=== PATIENT | female | born 1935 | race Caucasian/White ===

== ENCOUNTER 2019-02-24 07:30 | Inpatient (IN) | payer MEDICARE, OTHER ==
[~2019-02-24 07:30] MED LIST: Acetaminophen TAB* 325 MG PO ONE; Buffered Lidocaine 1% SYRIN* 1 ML/SYRINGE INTRADERM ONE; Dexamethasone IV* 4 MG/ML 1 ML (4 MG) IV SLOW PU ONE; Famotidine TAB* 20 MG PO ONE; Gabapentin CAP(*) 300 MG PO ONE; Lactated Ringers 1000 ML Bag* 1,000 ML IV SCH; Tranexamic Acid 1,000 MG in NS 0.9% 50 ML* (outpatient use) IV SCH; celeCOXIB CAP* 200 MG PO ONE
--- OUTSIDE RECORDS SUMMARY | 2019-02-24 09:19 | XMS REPORT | Continuity of Care Document ---
:1935 External Reference #:[id number] Author Name Jessica [facility] Care Team Providers Name Role Phone Kwame Wayne MD Primary Care Physician Unavailable Payers Date Identification Numbers Payment Provider Subscriber Policy Number: [id number] Medicare Claudia Henriquez PayID: [id number] [address] [place] [address] Policy Number: [id number] [employer] Claudia Henriquez Group Number: [id number] [address] PayID: [id number] [place] [address] Advance Directives Description No Information Available Problems Date Description Provider Status Onset: 02/08/2014 Essential hypertension Malia Davis M.D. Active Onset: 02/08/2014 Coronary arteriosclerosis Malia Davis M.D. Active Onset: 02/08/2014 Pure hypercholesterolemia Malia Davis M.D. Active Onset: 02/06/2019 Premature beats Malia Davis M.D. Active Onset: 02/11/2015 Hyperlipidemia Malia Davis M.D. Active Family History Date Family Member(s) Observation Comments General Hypertension General Cancer General Heart Disease Social History Type Date Description Comments Sex Unknown Marital Status Lives With Alone Occupation Retired ETOH Use Occasionally consumes wine Tobacco Use Start: Unknown End: Patient is a former quit smoking 30 Unknown smoker years ago Recreational Drug Use Denies Drug Use Smoking Status Reviewed: 02/19/19 Patient is a former quit smoking 30 smoker years ago Exercise Type/Frequency Does not exercise Allergies, Adverse Reactions, Alerts Date Description Reaction Status Severity Comments 03/12/2016 NKDA Active 02/04/2014 Lisinopril cough Inactive 02/04/2014 Zetia Inactive 02/04/2014 Statins constipation Inactive Medications Medication Date Status Form Strength Qnty SIG Indications Ordering Provider Losartan 06/27/ Active Tablets 50mg 90tabs 1 by mouth Malia Potassium 2017 every day Ryan, M.DQuan Atorvastatin 04/10/ Active Tablets 20mg 90tabs 1 tab by Malia Calcium 2012 mouth [place], every day M.D. Gemfibrozil 03/04/ Active Tablets 600mg 180tab 1 by mouth Malia 2012 s twice a [place], day M.D. Metoprolol 02/11/ Active Tablets ER 50mg 135tab 1 1/2 tabs Malia Succinate ER 2012 24HR s by mouth [place], daily M.D. Terazosin HCL / Active Capsules 5mg 90caps 1 tablet Unknown 0000 daily Aspirin / Active Tablets DR 81mg 1 po qd Unknown 0000 (takes once in awhile) Levothyroxine / Active Tablets 100mcg 30tabs 1 po qd Unknown Sodium 0000 Celebrex / Active Capsules 200mg take one Unknown 0000 capsule/ta blet daily by mouth as needed for pain, avoid ibuprofen and other nsaids Nitrostat / Active Tablets 0.3mg dissolve 1 Unknown 0000 Sub tablet under the tongue every 5 minutes up to 3 doses as needed replace every 12 months Procardia XL / Active Tablets ER 60mg 1 by mouth Unknown 0000 24HR every day Bactrim DS 02/13/ Hx Tablets 800-160mg 6tabs take 1 by Jossy 2019 - mouth Jed, 02/18/ twice a M.D. 2019 day for 3 days Losartan 06/27/ Hx Tablets 100mg 30tabs 1 by mouth Steven SQuan Potassium 2017 - every day Victor, 06/27/ DO FACC 2018 Diovan 02/04/ Hx Tablets 160mg 90tabs 1 tab by Malia 2012 - mouth [place], 06/27/ every day M.D. 2017 Lipitor 01/06/ Hx Tablets 20mg 90tabs 1 tab by Malia 2012 - mouth [place], 04/10/ every day M.D. 2012 Nifedical XL 12/01/ Hx Tablets ER 60mg 90tabs 1 by mouth Malia 2012 - 24HR every day Ryan 08/24/ MCornell 2018 Vitamin B12 / Hx Tablets 100mcg 1 by mouth Unknown 0000 - every day 2018 Medications Administered in Office Medication Date Status Form Strength Qnty SIG Indications Ordering Provider Inj, Administered Injection Steven S. Regadenoson, 019 Victor, DO 0.1 MG FACC Technetium TC Administered Injection Steven S. 99M 019 Victor, DO Tetrofosmin, FACC Per Unit Dose Up To 40 Millicuries Depomedrol Administered Injection Nick F 40MG Kwasi Call MD No Injection Administered Injection Nick F Edwina Call MD Depomedrol Administered Injection Nick F 40MG Edwina Call MD Inj, Administered Injection Steven S. Regadenoson, 018 Victor, DO 0.1 MG FACC Technetium TC Administered Injection Steven S. 99M 018 Victor, Tetrofosmin, FACC Per Unit Dose Up To 40 Millicuries Immunizations CPT Code Status Date Vaccine Lot # [id number] Given 09/29/2010 Influenza Virus 3Yrs & Over [id number] Vital Signs Date Vital Result Comment 02/19/2019 1:19pm Height 62 inches 5'2" Weight 148.50 lb w/o shoes Heart Rate 62 /min reg BP Systolic Sitting 130 mmHg Rue reg cuff BP Diastolic Sitting 65 mmHg Rue reg cuff Respiratory Rate 15 /min BMI (Body Mass Index) 27.2 kg/m2 Ejection Fraction 55-60% 02/16/19 echo 02/11/2019 10:50am Height 62 inches 5'2" Weight 148.00 lb pt stated just weighed at doctor BP Systolic 132 mmHg BP Diastolic 66 mmHg Respiratory Rate 20 /min Body Temperature 97.7 F Pain Level 5 BMI (Body Mass Index) 27.1 kg/m2 02/06/2019 1:00pm Height 62 inches 5'2" Weight 148.00 lb Heart Rate 60 /min BP Systolic Sitting 144 mmHg Rue reg cuff BP Diastolic Sitting 70 mmHg Rue reg cuff BP Systolic Standing 110 mmHg Rue reg cuff BP Diastolic Standing 60 mmHg Rue reg cuff Respiratory Rate 14 /min BMI (Body Mass Index) 27.1 kg/m2 12/22/2018 1:50pm Height 62 inches 5'2" Weight 149.00 lb Heart Rate 66 /min BP Systolic 122 mmHg BP Diastolic 66 mmHg Respiratory Rate 16 /min Body Temperature 96.2 F Pain Level 7 BMI (Body Mass Index) 27.2 kg/m2 10/27/2018 10:52am Height 62 inches 5'2" Weight 149.00 lb Heart Rate 70 /min BP Systolic 124 mmHg BP Diastolic 68 mmHg Respiratory Rate 20 /min Pain Level 5 BMI (Body Mass Index) 27.2 kg/m2 08/28/2018 2:54pm Height 62 inches 5'2" Weight 149.00 lb BP Systolic 130 mmHg BP Diastolic 70 mmHg Respiratory Rate 15 /min Pain Level 7 BMI (Body Mass Index) 27.2 kg/m2 08/25/2018 2:02pm Height 62 inches 5'2" Weight 149.00 lb BP Systolic 112 mmHg BP Diastolic 64 mmHg Respiratory Rate 20 /min Body Temperature 97.4 F Pain Level 8 BMI (Body Mass Index) 27.2 kg/m2 07/18/2018 8:18am Height 62 inches 5'2" Weight 149.00 lb w/shoes Heart Rate 64 /min BP Systolic Sitting 132 mmHg Lue reg cuff BP Diastolic Sitting 74 mmHg Lue reg cuff BP Systolic Standing 142 mmHg Lue reg cuff BP Diastolic Standing 68 mmHg Lue reg cuff BMI (Body Mass Index) 27.2 kg/m2 Ejection Fraction 67% Stress Test 05/07/18 04/24/2018 4:15pm Height 62 inches 5'2" Weight 150.00 lb with shoes Heart Rate 56 /min BP Systolic Sitting 154 mmHg LUe reg cuff BP Diastolic Sitting 80 mmHg LUe reg cuff BP Systolic Standing 160 mmHg Lue reg cuff BP Diastolic Standing 80 mmHg Lue reg cuff Respiratory Rate 16 /min BMI (Body Mass Index) 27.4 kg/m2 Ejection Fraction 64% date 12/18/11 ECHO 05/23/2017 3:34pm Height 62 inches 5'2" Weight 151.00 lb Heart Rate 64 /min BP Systolic 162 mmHg Rue reg cuff BP Diastolic 78 mmHg Rue reg cuff BP Systolic Sitting 164 mmHg Lue reg cuff BP Diastolic Sitting 78 mmHg Lue reg cuff BP Systolic Standing 156 mmHg Lue reg cuff BP Diastolic Standing 80 mmHg Lue reg cuff Respiratory Rate 14 /min BMI (Body Mass Index) 27.6 kg/m2 Ejection Fraction 64% 12/18/11 03/12/2016 1:19pm Height 62 inches 5'2" Weight 158.00 lb with shoes Heart Rate 78 /min BP Systolic Sitting 130 mmHg Ra reg cuff BP Diastolic Sitting 64 mmHg Ra reg cuff BP Systolic Standing 128 mmHg Ra reg cuff BP Diastolic Standing 68 mmHg Ra reg cuff Respiratory Rate 16 /min BMI (Body Mass Index) 28.9 kg/m2 Ejection Fraction 64% 12/18/11 03/07/2015 10:52am Height 62 inches 5'2" Weight 155.00 lb Heart Rate 64 /min BP Systolic Sitting 140 mmHg left arm, reg cuff BP Diastolic Sitting 88 mmHg left arm, reg cuff BP Systolic Standing 140 mmHg left arm, reg cuff BP Diastolic Standing 90 mmHg left arm, reg cuff BMI (Body Mass Index) 28.3 kg/m2 02/11/2015 1:53pm Height 62 inches 5'2" Weight 154.00 lb Heart Rate 56 /min BP Systolic Sitting 122 mmHg LA reg cuff BP Diastolic Sitting 62 mmHg LA reg cuff BP Systolic Standing 134 mmHg LA BP Diastolic Standing 74 mmHg LA Respiratory Rate 14 /min BMI (Body Mass Index) 28.2 kg/m2 02/08/2014 1:26pm Height 62 inches 5'2" Weight 160.00 lb without shoes Heart Rate 74 /min BP Systolic Sitting 144 mmHg LA reg cuff BP Diastolic Sitting 76 mmHg LA reg cuff BP Systolic Standing 140 mmHg LA reg cuf BP Diastolic Standing 80 mmHg LA reg cuf Respiratory Rate 17 /min BMI (Body Mass Index) 29.3 kg/m2 Results Test Date Facility Test Result H/L Range Note Urine Culture And 02/11/2019 [facility] Urine Culture SEE RESULT 1, [address] [place] [address] [phone] Type & Screen 02/11/2019 [facility] Patient Blood O Negative [address] [place] [address] [phone] Antibody Screen NEGATIVE Urinalysis Profile 02/11/2019 [facility] Urine Color Yellow [address] [place] [address] [phone] Urine Appearance Cloudy Urine Specific [place] 1.016 N 1.010-1.030 Urine pH 5.0 N 5-9 Urine Urobilinogen Negative Negative Urine Ketones Negative Negative Urine Protein Negative Negative Urine Leukocytes 3+ Abnormal Negative Urine Blood Negative Negative Urine Nitrite Positive Abnormal Negative Urine Bilirubin Negative Negative Urine Glucose Negative Negative Urine White Blood Cell 3+(>20/hpf) Abnormal Absent Urine Red Blood Cell Trace(0-2/hpf) Absent Urine Bacteria 3+ Abnormal Absent Urine Squamous Epithelial Cell Present Abnormal Absent Laboratory test 02/11/2019 [facility] Partial 35.6 seconds N 26.0-36.3 [address] [place] [address] PTT [phone] Inr/Protime 02/11/2019 [facility] Inr 0.95 N 0.77-1.[address] [place] [address] [phone] Comp Metabolic 02/11/2019 [facility] Sodium 139 mmol/L N 135- [address] [place] [address] [phone] Potassium 3.7 mmol/L N 3.5-5.0 Chloride 105 mmol/L N 101-111 Co2 Carbon Dioxide 25 mmol/L N 22-32 Anion Gap 9 mmol/L N 2-11 Glucose 98 mg/dL N 70-100 Blood Urea Nitrogen 32 mg/dL High 6-24 Creatinine 0.86 mg/dL N 0.51-0.95 BUN/Creatinine Ratio 37.2 High 8-20 Calcium 9.1 mg/dL N 8.6-10.3 Total Protein 6.7 g/dL N 6.4-8.9 Albumin 4.5 g/dL N 3.2-5.2 Globulin 2.2 g/dL N 2-4 Albumin/Globulin Ratio 2.0 N 1-3 Total Bilirubin 0.70 mg/dL N 0.2-1.0 Alkaline Phosphatase 77 U/L N 34-104 Alt 8 U/L N 7-52 Ast 14 U/L N 13-39 Egfr Non- 63.0 >60 Egfr 76.3 >60 4 CBC Auto Diff 02/11/2019 [facility] White Blood 7.5 10^3/uL N 3.5-10.[address] [place] [address] [phone] Red Blood Count 4.35 10^6/uL N 3.70-4.87 Hemoglobin 14.0 g/dL N 12.0-16.0 Hematocrit 41 % N 33-41 Mean Corpuscular Volume 94 fL N 80-97 Mean Corpuscular Hemoglobin 32 pg High 27-31 Mean Corpuscular HGB Conc 34 g/dL N 31-36 Red Cell Distribution Width 14 % N 10.5-15 Platelet Count 223 10^3/uL N 150-450 Mean Platelet Volume 8.6 fL N 7.4-10.4 Abs Neutrophils 5.7 10^3/uL N 1.5-7.7 Abs Lymphocytes 1.0 10^3/uL N 1.0-4.8 Abs Monocytes 0.5 10^3/uL N 0-0.8 Abs Eosinophils 0.2 10^3/uL N 0-0.6 Abs Basophils 0.1 10^3/uL N 0-0.2 Abs Nucleated RBC 0 10^3/uL Granulocyte % 75.8 % Lymphocyte % 13.9 % Monocyte % 6.6 % Eosinophil % 2.7 % Basophil % 1.0 % Nucleated Red Blood Cells % 0 Xray 01/18/2019 [employer] In House Inj/Aspir Major JT Or Bursa W/ US <pending> 1 AA 02/24 2 SEE RESULT BELOW Name: MARILUZCLAUDIA Mario : [address]: Deshaun Otero MD Acct: [id number] Unit: [id number] AGE: 83 Location: PAT Re02/11/19 SEX: F Status: REG REF SPEC: [id number] EMILEE: 02/11/19-[address] [facility] [address]: Deshaun Otero MD REQ: [id number] RECD: 02/11/19 STATUS: ARCHIE INMAN DR: Kwame Wayne MD _ SOURCE: URINE SPDESC: ORDERED: Urine Culture Procedure Result Reported Site Urine Culture Final 02/13/19- 0922 ML Organism 1 ESCHERICHIA COLI [place] Count >100,000 (Many) CFU/ML 1. ESCHERICHIA COLI M.I.C. RX --------- ------ Ampicillin 8 S Cefazolin <=4 S Cefepime <=1 S Ceftriaxone <=1 S Ciprofloxacin <=0.25 S Gentamicin <=1 S Levofloxacin <=0.12 S Meropenem <=0.25 S Nitrofurantoin <=16 S Tetracycline <=1 S Pipercillin/Tazobactam <=4 S Trimethoprim/Sulfamethoxazole <=20 S Amoxicillin/Clavulanic Acid 4 S Aztreonam <=1 S Contact the Microbiology Department for any additional antibiotic reporting. * [facility] - Main Lab . END OF REPORT DEPARTMENT OF PATHOLOGY, [address] [place] [address] Ashish Barr M.D. Director [facility] # [id number] 3 02/24 4 Because ethnic data is not always readily available, this report includes an eGFR for both -Americans and non- Americans. The National Kidney Disease Education Program (NKDEP) does not endorse the use of the MDRD equation for patients that are not between the ages of 18 and 70, are , have extremes of body size, muscle mass, or nutritional status, or are non- or non-. According to the National Kidney Foundation, irrespective of diagnosis, the stage of the disease is based on the level of kidney function: Stage Description GFR(mL/min/1.73 m(2)) 1 Kidney damage with normal or decreased GFR 90 2 Kidney damage with mild decrease in GFR 60-89 3 Moderate decrease in GFR 30-59 4 Severe decrease in GFR 15-29 5 Kidney failure <15 (or dialysis) Procedures Date Code Description Status 02/16/2019 47796 ECHO Transthoracic, Real-Time 2D With Doppler And Color Completed Flow 02/16/2019 98657 ECHO Transthoracic, Real-Time 2D With Doppler And Color Completed Flow 02/12/2019 50333 Stress Test Completed 02/12/2019 98711 Myocardial Perfusion Imaging Tomographic (Spect) Multiple Completed Studies 02/10/2019 71207 Holter Monitor Review (24 hr)dr review & interp only Completed 02/06/2019 58367 ECG Monitor/Recording W/Visual Superimposition Scanning Completed 02/06/2019 26714 EKG Tracing & Interpretation Completed 12/22/2018 57054 Inj/Aspir Major JT Or Bursa W/ US Completed 12/22/2018 63831 Inj/Aspir Major JT Or Bursa W/ US Completed 08/28/2018 38255 Inj/Aspir Major JT Or Bursa W/ US Completed 05/06/2018 71300 Stress Test Completed 05/06/2018 34007 Myocardial Perfusion Imaging Tomographic (Spect) Multiple Completed Studies 04/24/2018 05733 EKG Tracing & Interpretation Completed 05/23/2017 74394 EKG Tracing & Interpretation Completed 03/12/2016 23986 EKG Tracing & Interpretation Completed 02/11/2015 92752 EKG Tracing & Interpretation Completed 02/08/2014 35099 EKG Tracing & Interpretation Completed 02/11/2013 47929 EKG Tracing & Interpretation Completed Encounters Type Date Location Provider Dx Diagnosis Office Visit 02/06/2019 [facility] Malia Davis, Z01.810 Encounter for 1:10p Of Bryce M.D. preprocedural cardiovascular examination M16.11 Unilateral primary osteoarthritis, right hip I25.10 Athscl heart disease of [place] coronary artery w/o ang pctrs E78.5 Hyperlipidemia, unspecified I10 Essential (primary) hypertension I49.3 Ventricular premature depolarization I25.2 Old myocardial infarction R01.1 Cardiac murmur, unspecified Office Visit 12/22/2018 Orthopedic Deshaun Otero, M16.11 Unilateral primary 1:45p Services Of [facility] osteoarthritis, right C.M.A. hip Office Visit 10/27/2018 Holly Otero M16.11 Unilateral primary 11:00a Services Of M.D. osteoarthritis, right C.M.A. hip Office Visit 08/25/2018 Holly Otero, M16.11 Unilateral primary 1:30p Services Of M.DQuan osteoarthritis, right C.M.A. hip Office Visit 07/18/2018 Linda Andrews I25.10 Athscl heart disease 8:30a [facility] Of [facility] of [place] coronary [employer] artery w/o ang pctrs E78.5 Hyperlipidemia, unspecified I10 Essential (primary) hypertension Office Visit 04/24/2018 4:00p [facility] Malia Davis, I25.10 Athscl heart Of [employer] M.D. disease of [place] coronary artery w/o ang pctrs E78.5 Hyperlipidemia, unspecified I10 Essential (primary) hypertension Z91.81 History of falling R35.1 Nocturia I49.3 Ventricular premature depolarization Office Visit 05/23/2017 3:00p [facility] Malia Davis, I25.10 Athscl heart Of [employer] M.D. disease of [place] coronary artery w/o ang pctrs I10 Essential (primary) hypertension E78.5 Hyperlipidemia, unspecified Office Visit 03/12/2016 1:30p [facility] Malia Davis, I25.10 Athscl heart Of [facility] M.D. disease of [place] coronary artery w/o ang pctrs I10 Essential (primary) hypertension E78.5 Hyperlipidemia, unspecified I25.2 Old myocardial infarction Office Visit 03/07/2015 11:00a [facility] Andie Boo, 401.9 Hypertension Unspec Of [facility] [place] 780.4 Dizziness & Giddiness 272.4 Hyperlipidemia Other Unspec 414.01 Coronary Atherosclerosis [place] Office Visit 02/11/2015 [place] Malia Davis, 414.01 Coronary 1:45p Cardiology Of M.D. Atherosclerosis [employer] [place] 401.9 Hypertension Unspec 272.4 Hyperlipidemia Other Unspec 780.4 Dizziness & Giddiness Office Visit 02/08/2014 1:15p [facility] Malia Davis, 401.9 Hypertension Of [facility] M.D. Unspec 414.01 Coronary Atherosclerosis [place] 272.0 Hypercholesterolemia Pure Office Visit 03/04/2013 9:15a [place] Nurse Visit 401.9 Hypertension Unspec Cardiology Of [facility] Office Visit 02/11/2013 10:45a [place] Malia 414.01 Coronary Cardiology Of [place], Atherosclerosis [facility] M.D. [place] 401.9 Hypertension Unspec 272.0 Hypercholesterolemia Pure Plan of Treatment Future Appointment(s):02/24/2019 11:30 am - VIJAY Nguyen at [facility].03/18/2019 2:15 pm - Deshaun Otero M.D. at [facility].02/24/2019 11:30 am - Deshaun Otero M.D. at [facility].02/19/2019 - Leticia Adams, N.P.R01.1 Cardiac murmur, qybaqikivbmL37.10 Atherosclerotic heart disease of [place] coronary artery withComments:Echo shows inferior wall not moving so well likely from old heart attack.Follow up:07/2019 OV LBSRecommendations:Continue metoprolol. ok to come off ASA for surgery ok to hold procardia and losartan if needed for blood iebzqnbgF68.3 Ventricular premature [id number] Essential (primary) jafgkvxyypysE05.2 Old myocardial infarction
--- OUTSIDE RECORDS SUMMARY | 2019-02-24 09:19 | XMS REPORT | Continuity of Care Document ---
:1935 External Reference #:[id number] Author Name [place] Jessica Care Team Providers Name Role Phone Kwame Wayne MD Primary Care Physician Unavailable Payers Date Identification Numbers Payment Provider Subscriber Policy Number: [id number] Medicare Sayda Henriquez PayID: [id number] [address] [place] [address] Policy Number: [id number] [employer] Sayda Henriquez Group Number: [id number] [address] PayID: [id number] [place] [address] Advance Directives Description No Information Available Problems Date Description Provider Status Onset: 02/08/2014 Essential hypertension Malia Davis M.D. Active Onset: 02/08/2014 Coronary arteriosclerosis Mlaia Davis M.D. Active Onset: 02/08/2014 Pure hypercholesterolemia [...] Use Denies Drug Use Smoking Status Reviewed: 02/06/19 Patient is a former quit smoking 30 [...] by mouth Malia Potassium 2017 every day Sandhya Davis Atorvastatin 04/10/ Active Tablets 20mg 90tabs 1 tab by Malia Calcium 2012 mouth every [place], day M.D. Gemfibrozil 03/04/ Active Tablets 600mg 180tab 1 by mouth Malia 2012 s twice a day Sandhya Davis Metoprolol 02/11/ Active Tablets ER 50mg 135tab 1 1/2 tabs Malia Succinate ER 2012 24HR s by mouth Ryan, daily M.DQuan Terazosin HCL / Active Capsules 5mg 90caps 1 tablet Unknown 0000 daily Aspirin / Active Tablets DR 81mg 1 po qd Unknown 0000 Levothyroxine / Active Tablets 100mcg 30tabs 1 po qd Unknown Sodium 0000 Celebrex / Active Capsules 200mg take one Unknown 0000 capsule/tab let daily by mouth as needed for pain, avoid ibuprofen and other nsaids Nitrostat / Active Tablets 0.3mg dissolve 1 Unknown 0000 Sub tablet under the tongue every 5 minutes up to 3 doses as needed replace every 12 months Procardia XL / Active Tablets ER 60mg 1 by mouth Unknown 0000 24HR every day Losartan 06/27/ Hx Tablets 100mg 30tabs 1 by mouth Steven Mckinney 2017 - every day Victor, 06/27/ FAC 2018 Diovan 02/04/ Hx Tablets 160mg 90tabs 1 tab by Malia 2012 - mouth every Ryan, 06/27/ day M.D. 2017 Lipitor 01/06/ Hx Tablets 20mg 90tabs 1 tab by Malia 2012 - mouth every Ryan, 04/10/ day M.D. 2012 Nifedical XL 12/01/ Hx Tablets ER 60mg 90tabs 1 by mouth Malia 2012 - 24HR every day Ryan, 08/24/ M.D. 2017 Vitamin B12 / Hx Tablets 100mcg 1 by mouth Unknown 0000 - every day 2018 Medications Administered in Office Medication Date Status Form Strength Qnty SIG Indications Ordering Provider Depomedrol 01/28/2 Administered Injection Nick F 40MG 019 Oneyda, MD No Injection Administered Injection Nick F 018 MD Oneyda Depomedrol Administered Injection Nick F 40MG Edwina Call MD Inj, Administered Injection Steven S. Regadenoson, 018 Victor, DO 0.1 MG FACC Technetium TC Administered Injection Steven S. 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 Inj/Aspir Major JT Or Bursa W/ <pending> US Procedures Date Code Description Status 02/06/2019 64130 EKG Tracing & Interpretation Completed 12/22/2018 Inj/Aspir Major JT Or Bursa W/ US Completed 12/22/2018 Inj/Aspir Major JT Or Bursa W/ US Completed 08/28/2018 Inj/Aspir Major JT Or Bursa W/ US Completed 05/06/2018 79296 Stress Test Completed 05/06/2018 49632 Myocardial Perfusion Imaging Tomographic (Spect) Multiple Completed Studies 04/24/2018 11114 EKG Tracing & Interpretation Completed 05/23/2017 16731 EKG Tracing & Interpretation Completed 03/12/2016 80264 EKG Tracing & Interpretation Completed 02/11/2015 05855 EKG Tracing & Interpretation Completed 02/08/2014 64884 EKG Tracing & Interpretation Completed 02/11/2013 20117 EKG Tracing & Interpretation Completed Encounters Type Date Location Provider Dx Diagnosis Office Visit 12/22/2018 [facility] Deshaun Otero M.D. 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 osteoarthritis, right hip Office Visit 10/27/2018 Holly Otero M.D. M16.11 Unilateral primary 11:00a [facility] osteoarthritis, right hip Office Visit 08/25/2018 [facility] Deshaun Otero M.D. M16.11 Unilateral primary 1:30p Services [facility] osteoarthritis, right hip Office Visit 07/18/2018 [place] [facility] Leticia Adams, I25.10 Athscl heart 8:30a Of [facility] [facility]. disease of platinum coronary artery w/o ang pctrs E78.5 Hyperlipidemia, unspecified I10 Essential (primary) hypertension Office Visit 04/24/2018 4:00p [place] [facility] Malia Davis, I25.10 Athscl heart Of [place] M.D. disease of platinum coronary artery w/o ang pctrs E78.5 Hyperlipidemia, unspecified I10 Essential (primary) hypertension Z91.81 History of falling R35.1 Nocturia I49.3 Ventricular premature depolarization Office Visit 05/23/2017 3:00p [place] [facility] Maila Davis, I25.10 Athscl heart Of [facility] M.D. disease of platinum coronary artery w/o ang pctrs I10 Essential (primary) hypertension E78.5 Hyperlipidemia, unspecified Office Visit 03/12/2016 1:30p [place] [facility] Malia Davis, I25.10 Athscl heart Of [facility] M.D. disease of platinum coronary artery w/o ang pctrs I10 Essential (primary) hypertension E78.5 Hyperlipidemia, unspecified I25.2 Old myocardial infarction Office Visit 03/07/2015 11:00a [place] [facility] Andie Boo, 401.9 Hypertension Unspec Of [facility] [place] 780.4 Dizziness & Giddiness 272.4 Hyperlipidemia Other Unspec 414.01 Coronary Atherosclerosis [place] Office Visit 02/11/2015 [place] Malia Davis, 414.01 Coronary 1:45p Cardiology Of M.D. Atherosclerosis [facility] [place] 401.9 Hypertension Unspec 272.4 Hyperlipidemia Other Unspec 780.4 Dizziness & Giddiness Office Visit 02/08/2014 1:15p [place] [facility] Malia Davis, 401.9 Hypertension Of [facility] M.D. Unspec 414.01 Coronary Atherosclerosis [place] 272.0 Hypercholesterolemia Pure Office Visit 03/04/2013 9:15a [place] Nurse Visit 401.9 Hypertension Unspec Cardiology Of IC [facility] Office Visit 02/11/2013 10:45a [place] Malia 414.01 Coronary Cardiology Of [place], Atherosclerosis [facility] M.D. [place] 401.9 Hypertension Unspec 272.0 Hypercholesterolemia Pure Plan of Treatment Future Appointment(s):02/19/2019 1:30 pm - Leticia Adams N.P. at [facility]02/12/2019 10:15 am - Tori Vu M.D. at [facility]02/16/2019 11:00 am - Ica ECHO Schedule at [facility]02/09/2019 8:00 am - Nurse Visit IC at [facility]2018 7:30 am - Dirk Shanna, M.D. at [facility].02/11/2019 11: 00 am - Deshaun Otero M.D. at [facility].02/06/2019 - Malia Davis M.D.Z01.810 Encounter for preprocedural cardiovascular examinationComments:We will update your echo and stress test prior to making recommendations for your surgery.Follow up:OV MD or [employer] after testing (Sx February 24).M16.11 Unilateral primary osteoarthritis, right hipI25.10 Atherosclerotic heart disease of platinum coronary artery withNew Orders:Echocardiogram, Ordered: 02/06/19Stress Test, Pharmacologic Nuclear (Lexiscan), Ordered: 02/06/19E78.5 Hyperlipidemia, [id number] Essential (primary) migjypxtuharO99.3 Ventricular premature depolarizationNew Orders:Holter Monitor, Ordered: Echocardiogram, Ordered: 02/06/19I25.2 Old myocardial uijkstjybsB14.1 Cardiac murmur, unspecifiedNew Orders:Echocardiogram, Ordered: 02/06/19
--- OUTSIDE RECORDS SUMMARY | 2019-02-24 09:19 | XMS REPORT | Continuity of Care Document ---
:1935 External Reference #:[id number] Author Name RodríguezGabrielJudit Care Team Providers Name Role Phone Kwame Wayne MD Primary Care Physician Unavailable Payers Date Identification Numbers Payment Provider Subscriber Policy Number: [id number] Medicare Sayda Henriquez PayID: [id number] [address] [place] [address] Policy Number: [id number] [employer] Sayda Henriquez Group Number: [id number] [address] PayID: [id number] [place] [address] Advance Directives Description No Information Available Problems [...] Use Denies Drug Use Smoking Status Reviewed: 02/11/19 Patient is a former quit smoking 30 [...] by mouth Malia Potassium 2017 every day Ryan MCornell Atorvastatin 04/10/ Active Tablets 20mg 90tabs 1 tab by Malia Calcium 2012 mouth every Ryan, day M.DQuan Gemfibrozil 03/04/ Active Tablets 600mg 180tab 1 by mouth Malia 2012 s twice a day Sandhya Davis Metoprolol 02/11/ Active Tablets ER 50mg 135tab 1 1/2 tabs Malia Succinate ER 2012 24HR s by mouth [place], daily M.DQuan Terazosin HCL / Active Capsules [...] Tablets 100mg 30tabs 1 by mouth Steven Andrews Potassium 2017 - every day [place], 06/27/ [facility] 2018 Diovan 02/04/ Hx Tablets 160mg 90tabs 1 tab by Malia 2012 - mouth every Ryan, 06/27/ day M.D. 2017 Lipitor 01/06/ Hx Tablets 20mg 90tabs 1 tab by Malia 2012 - mouth every [place], 04/10/ day M.D. 2012 Nifedical XL 12/01/ Hx Tablets ER 60mg 90tabs 1 by mouth Malia 2012 - 24HR every day [place], 08/24/ M.D. 2017 Vitamin B12 / Hx Tablets 100mcg 1 by mouth Unknown 0000 - every day 2018 Medications Administered in Office Medication Date Status Form Strength Qnty SIG Indications Ordering Provider Depomedrol Administered Injection Nick F 40MG Kwasi [...] CPT Code Status Date Vaccine Lot # [id number] Given 09/29/2010 Influenza Virus 3Yrs & Over [id number] Vital Signs Date Vital Result Comment 02/11/2019 10:50am Height 62 inches 5'2" Weight [...] Test Result H/L Range Note Xray 01/18/2019 Telecommunications Officer In House Inj/Aspir Major JT Or Bursa W/ <pending> US Procedures Date Code Description Status 02/06/2019 53263 EKG Tracing & Interpretation Completed 12/22/201841092 Inj/Aspir Major JT Or Bursa W/ US Completed 12/22/201836125 Inj/Aspir Major JT Or Bursa W/ US Completed 08/28/201861085 Inj/Aspir Major JT Or Bursa W/ US Completed 05/06/2018 01310 Stress Test Completed 05/06/2018 02051 Myocardial Perfusion Imaging Tomographic (Spect) Multiple Completed Studies 04/24/2018 09507 EKG Tracing & Interpretation Completed 05/23/2017 63038 EKG Tracing & Interpretation Completed 03/12/2016 05797 EKG Tracing & Interpretation Completed 02/11/2015 39213 EKG Tracing & Interpretation Completed 02/08/2014 57120 EKG Tracing & Interpretation Completed 02/11/2013 10878 EKG Tracing & Interpretation Completed Encounters Type Date Location Provider Dx Diagnosis Office Visit 02/06/2019 [place] [facility] Malia Davis, Z01.810 Encounter for 1:10p Of [place] preprocedural cardiovascular examination M16.11 Unilateral primary osteoarthritis, right hip I25.10 Athscl heart disease of [place] coronary artery w/o ang pctrs E78.5 Hyperlipidemia, unspecified I10 Essential (primary) hypertension I49.3 Ventricular premature depolarization I25.2 Old myocardial infarction R01.1 Cardiac murmur, unspecified Office Visit 12/22/2018 [facility] Deshaun Otero, M16.11 Unilateral primary 1:45p Services Of M.D. osteoarthritis, right C.M.A. hip Office Visit 10/27/2018 [facility] Deshaun Otero, M16.11 Unilateral primary 11:00a Services Of M.D. osteoarthritis, right C.M.A. hip Office Visit 08/25/2018 [facility] Deshaun Otero, M16.11 Unilateral primary 1:30p Services Of [place]. osteoarthritis, right C.M.A. hip Office Visit 07/18/2018 [place] Leticia Andrews I25.10 Athscl heart disease 8:30a Cardiology Of [place] N.[place]. of [place] coronary Telecommunications Officer artery w/o ang pctrs E78.5 Hyperlipidemia, unspecified I10 Essential (primary) hypertension Office Visit 04/24/2018 4:00p [facility] Malia Davis I25.10 Athscl heart Of Telecommunications Officer M.D. disease of [place] coronary artery w/o ang pctrs E78.5 Hyperlipidemia, unspecified I10 Essential (primary) hypertension Z91.81 History of falling R35.1 Nocturia I49.3 Ventricular premature depolarization Office Visit 05/23/2017 3:00p [facility] [facility] Malia Davis I25.10 Athscl heart Of Telecommunications Officer M.D. disease of [place] coronary artery w/o ang pctrs I10 Essential (primary) hypertension E78.5 Hyperlipidemia, unspecified Office Visit 03/12/2016 1:30p [facility] Malia Davis I25.10 Athscl heart Of Telecommunications Officer M.D. disease of [place] coronary artery w/o ang pctrs I10 Essential (primary) hypertension E78.5 Hyperlipidemia, unspecified I25.2 Old myocardial infarction Office Visit 03/07/2015 11:00a [facility] Andie Boo, 401.9 Hypertension Unspec Of [facility] [place] 780.4 Dizziness & Giddiness 272.4 Hyperlipidemia Other Unspec 414.01 Coronary Atherosclerosis [place] Office Visit 02/11/2015 [place] Malia Davis, 414.01 Coronary 1:45p Cardiology Of M.D. Atherosclerosis Telecommunications Officer [place] 401.9 Hypertension Unspec 272.4 Hyperlipidemia Other Unspec 780.4 Dizziness & Giddiness Office Visit 02/08/2014 1:15p [facility] Malia Davis, 401.9 Hypertension Of [facility] M.D. Unspec 414.01 Coronary Atherosclerosis [place] 272.0 Hypercholesterolemia Pure Office Visit 03/04/2013 9:15a [place] Nurse Visit 401.9 Hypertension Unspec Cardiology Of IC [facility] Office Visit 02/11/2013 10:45a [place] Malia 414.01 Coronary Cardiology Of [place], [facility] Sandhya [place] 401.9 Hypertension Unspec 272.0 Hypercholesterolemia Pure Plan of Treatment Future Appointment(s):03/18/2019 2:15 pm - Deshaun Otero M.D. at [facility]02/19/2019 1:30 pm - Leticia Adams N.PQuan at [place] [facility]02/12/2019 10:15 am - Tori Vu M.D. at [facility] [facility]02/16/2019 11:00 am - Ica ECHO Schedule at [facility]02/24/2019 7:30 am - Deshaun Otero M.D. at [facility]. - Deshaun Otero M.D.M16.11 Unilateral primary osteoarthritis, right hipNew Xrays:Pelvis 1-2 VWS, Ordered: 02/11/19Follow up:Follow up: 3-4 weeks post operatively
[2019-02-24] MEDS ORDERED: Dexamethasone IV* 4 MG/ML 1 ML (4 MG) ONE (09:51)
[2019-02-24] MEDS ORDERED: celeCOXIB CAP* 100 MG ONE (09:51)
[2019-02-24] MEDS ORDERED: Gabapentin CAP(*) 300 MG ONE (09:51)
[2019-02-24] MEDS ORDERED: ceFAZolin 2 GM in NS PREMIX(*) 2 GM/100 ML BAG IVPB ONE (09:52)
[2019-02-24] MEDS ORDERED: Famotidine TAB* 20 MG ONE (09:52)
[2019-02-24] MEDS ORDERED: Acetaminophen TAB* 325 MG ONE (09:52)
[2019-02-24] MEDS ORDERED: fentaNYL* 50 MCG/ML 2 ML VIAL (100 MCG VIAL) ONE ×2 (12:10→16:33)
[2019-02-24] MEDS ORDERED: Rocuronium* 10 MG/ML VIAL ONE (12:11)
[2019-02-24] MEDS ORDERED: Etomidate* 2 MG/ML 10 ML VIAL ONE (12:34)
[2019-02-24] MEDS ORDERED: KETAMINE HCL* 50 MG/ML 10 ML VIAL ONE (12:34)
[2019-02-24] MEDS ORDERED: HYDROmorphone INJ1* 1 MG/ML SYRINGE ONE (12:35)
[2019-02-24] MEDS ORDERED: oxyCODONE TAB* 5 MG TAB PO PRN ×2 (13:33→14:28)
[2019-02-24] MEDS ORDERED: HYDROmorphone INJ1* 1 MG/ML SYRINGE IV PRN (13:33)
[2019-02-24] MEDS ORDERED: PROCHLORPERAZINE INJ 5 MG/ML 2 ML VIAL IV PRN (13:33)
[2019-02-24] MEDS ORDERED: fentaNYL* 50 MCG/ML 2 ML VIAL (100 MCG VIAL) IV PRN (13:33)
[2019-02-24] MEDS ORDERED: Ketorolac INJ* 30 MG/ML 1 ML VIAL IV PRN (13:33)
[2019-02-24] MEDS ORDERED: Naloxone* 0.4 MG/ML 1 ML VIAL IV PRN (13:33)
[2019-02-24] MEDS ORDERED: DiMENhydriNATE IV* 50 MG/ML VIAL IV PUSH PRN (13:33)
[2019-02-24] MEDS ORDERED: Acetaminophen IV 1GM/100ML * 1,000 MG/100 ML VIAL IVPB ONE (13:33)
[2019-02-24] MEDS ORDERED: EPHEDrine (Pressors)* 50 MG/ML VIAL ONE (14:07)
[2019-02-24] MEDS ORDERED: Ondansetron INJ* 2 MG/ML VIAL ONE (14:13)
[2019-02-24] MEDS ORDERED: Morphine INJ* 2 MG/ML 1 ML SYRINGE (TWO MG - NEW SYRINGE VERSION) IV PRN (14:28)
[2019-02-24] MEDS ORDERED: Cyclobenzaprine TAB* 10 MG PO PRN (14:28)
[2019-02-24] MEDS ORDERED: Ondansetron ODT TAB* 4 MG PO PRN (14:28)
[2019-02-24] MEDS ORDERED: Ondansetron INJ* 2 MG/ML VIAL IV PRN (14:28)
[2019-02-24] MEDS ORDERED: diPHENhydraMINE IV* 50 MG/ML 1 ml VIAL (BENADRYL) IV PRN (14:28)
[2019-02-24] MEDS ORDERED: diPHENhydraMINE PO* 25 MG PO PRN (14:28)
[2019-02-24] MEDS ORDERED: Magnesium Hydroxide LIQ* 30 ML UDC PO PRN (14:28)
[2019-02-24] MEDS ORDERED: Nitroglycerin TAB 0.4 MG* 0.4 MG TAB SL PRN (15:00)
[2019-02-24] MEDS ORDERED: Ketorolac INJ* 30 MG/ML 1 ML VIAL ONE (15:54)
[2019-02-24] MEDS ORDERED: Acetaminophen IV 1GM/100ML * 100 ML ONE (15:54)
[2019-02-24] MEDS: Acetaminophen TAB* 325 MG PO SCH ×2 (17:24→17:36)
[2019-02-24] MEDS: Lactated Ringers 1000 ML Bag* 1,000 ML IV SCH (17:33)
[2019-02-24] MEDS: traMADol TAB* 50 MG PO SCH (17:48)
[2019-02-24] MEDS ORDERED: Losartan TAB* 25 MG PO SCH (18:00)
--- NOTE | 2019-02-24 20:11 | CONS ---
CONSULTATION REPORT: DATE OF CONSULT: 02/24/19 SERVICE REQUESTING CONSULTATION: Orthopedic Surgery. REASON FOR CONSULT: Perioperative co-management. SOURCE OF INFORMATION: History obtained from interview with the patient and family as well as review of past medical records. HISTORY OF PRESENT ILLNESS: This is an 83-year-old female with past medical history of CAD, last intervention in 2004, generally in good health, limited by osteoarthritic pain in her right hip, now postop day 0 status post right total hip arthroplasty with Dr. Otero. The patient was reportedly uneventful. No complications. She was seen in the PACU with her family. She was awake, interactive, and had no complaints. Denied chest pain, shortness of breath, nausea, vomiting, lightheadedness. Her medications were reviewed in depth. PAST MEDICAL HISTORY: Includes hyperlipidemia; coronary artery disease, status post stenting to her mid RCA, 2004; essential hypertension; GERD; osteoarthritis; hypothyroidism; history of cholecystectomy; appendectomy. Last stress test 2017, low risk. HOME MEDICATIONS: Include: 1. Terazosin 5 mg. 2. Aspirin 81 mg daily. 3. Levothyroxine 100 mcg daily. 4. Celebrex 200 mg daily as needed. 5. Nitrostat 0.3 mg as needed. 6. Procardia XL 60 mg daily. 7. Atorvastatin 20 mg daily. 8. Losartan 50 mg daily. 9. Metoprolol succinate 75 mg daily. 10. Gemfibrozil 600 mg twice daily. ALLERGIES: No known drug allergies. FAMILY HISTORY: Significant for cancer and heart disease as well as hypertension. SOCIAL HISTORY: Retired, lives alone. Quit smoking 30 years prior. Minimal alcohol. REVIEW OF SYSTEMS: As per HPI. Otherwise, all others negative. PHYSICAL EXAM: Vitals: 162/73, heart rate 53, 100% on 2 L, respiratory rate is 12, T-max 98. An 83-year-old female, appears stated age, lying flat, interactive, in no apparent distress. Her oropharynx is clear. She has moist mucous membranes. Sclerae are anicteric. She has regular rate and rhythm. She has a soft 2/6 systolic ejection murmur loudest in the right upper sternal border. Her lungs are clear to auscultation. Abdomen is soft, nontender, and nondistended. Extremities were warm and well perfused. Cranial nerves II through XII were intact. LABORATORY DATA: Labs reviewed: No labs to review. ASSESSMENT AND PLAN: This is an 83-year-old female postop day 0 right total hip arthroplasty with Dr. Otero without complication. 1. Postop day 0 right total hip. Care per primary team. Recommend minimization of narcotics in the perioperative period as able. I do note she has orders written for Dilaudid, ketorolac, morphine, oxycodone, and tramadol; all high-risk medications. Recommend simplification of narcotic and pain regimen. 2. Coronary artery disease. Continue aspirin and atorvastatin. 3. Hypertension. Continue losartan as well as nifedipine to start tomorrow. 4. DVT prophylaxis: Per primary team. Currently nothing ordered. [id number]/CPS #: [id number] [facility]
[2019-02-24] MEDS: Docusate CAP* 100 MG PO SCH (20:54)
[2019-02-24] MEDS: Gemfibrozil TAB* 600 MG PO SCH (20:54)
[2019-02-24] MEDS: ceFAZolin 1 GM ADVAN(*) 1 GM in NS 0.9% 50 ML* 50 ML IVPB SCH (20:54)
--- NOTE | 2019-02-24 22:47 | OP ---
CC: Dr. Kwame Wayne, [facility] * DATE OF OPERATION: 02/24/19 - ROOM #350 DATE OF : 35 SURGICAL CARE: Right hip. SURGEON: Deshaun Otero MD. ASSISTANTS: sound assistant, VIJAY Nguyen and Rebecca Bowden, surgical physician assistant. ANESTHESIOLOGIST: Dr. Mitchell. ANESTHESIA: Spinal anesthetic was attempted and not successful, we feel due to arthritis and scoliosis, and then an endotracheal tube general anesthetic was done. PRE-OP DIAGNOSIS: Severe arthritis of the right hip. POST-OP DIAGNOSIS: Severe arthritis of the right hip. OPERATIVE PROCEDURE: Right total hip replacement. COMPLICATIONS: There were no complications. DRAINS: There were no drains. ESTIMATED BLOOD LOSS: Right hip, 200 mL. REPLACEMENT: Crystalloid fluids. OPERATIVE INDICATION: Severe arthritis of the right hip. It has been no longer responsive to nonoperative care. The patient has been at months of very limited ambulation, pain, and stiffness of the hip. Severe arthritis by x-ray. CONDITION: Stable, to recovery room. DESCRIPTION OF PROCEDURE: The patient was brought to the operating room. The spinal anesthetic was attempted mainly in the sitting position and after it was unsuccessful, she was returned to the supine position, a general anesthetic was administered with an endotracheal tube. A Aragon catheter was inserted. The patient was carefully placed in the left lateral position with the downside left leg padded so there was no pressure on the peroneal nerve at the fibular head and neck. The pelvis was secured over the ASIS in the sacrum. A folded blanket was placed under the left greater trochanter to elevate the pelvis and the groin was then sealed off. The right hip and right lower extremity were then given a preliminary chlorhexidine prep and a final ChloraPrep for the surgical care. After prepping, draping, and sealing off, we did our universal protocol time-out, confirming Sayda Martinez and the plan for a right total hip replacement. We all agreed and we proceeded. The right hip was then approached with a slightly curving posterolateral skin incision going from the greater trochanter distally for 1-1/2 inch and curving proximally and posteriorly towards the posterior iliac spine for 2- 1/2 to 3 inches. Careful hemostasis was checked and achieved throughout the case utilizing electrocautery. The skin incision was made and we went through the subcu down to the iliotibial band. The IT band was opened up over the trochanteric bursa and then opened over the gluteus maria eugenia, in line with the skin incision. A Charnley retractor was carefully inserted. The trochanteric bursa was swept anteriorly and posteriorly. The posterior border of the gluteus medius was identified as well as the piriformis and a blunt retractor was inserted there. The piriformis and conjoint tendon were released from their piriformis fossa insertions and each were marked with a separate #2 Surgidac suture and the underlying capsular flap was also marked with this stitch and served as a retractor throughout the case. Careful hemostasis was done with the posterior approach to the hip. The hip had clear synovial fluid. It was not abundant. There was posterior, superior, and inferior osteophytes. The hip had migrated medially with sclerotic bone. The femoral neck was carefully marked and then cut about a fingerbreadth proximal to the lesser trochanter and the retraction for the acetabulum with sharp Hohmann anteriorly and posteriorly and blunt Hohmann superiorly and inferiorly. The osteophytes were removed superiorly/posteriorly and posteriorly/inferiorly. Reaming was then done 43 through 48 and at 48 we had nice bleeding subchondral and cancellous bone, a 48 Continuum cup was impacted into position after careful irrigation and the position of the cup was 45 degrees of abduction, 20 degrees of anteversion, and a single screw was inserted. Another screw was drilled for and this was too short and not utilized. An elevated liner was placed posteriorly for a 32 head. On the femoral side, we used a canal finder. The box osteotome trochanteric reamer broaching was done, 4 through 9, and the 9 was too tight, so the 7.5 was accepted and a trial reduction was done with the reduced neck and the +0 had nice fit; minimal push pull, no tendency towards dislocation with IR/ER in extension, flexion of 90 degrees allowed IR, and internal rotation of 30 to 40 degrees prior to dislocation. The femoral canal was cleaned. The 7.5 reduced neck standard M/L taper stem was then impacted into position in 15 to 20 degrees of anteversion. The trunnion was cleaned and a +0, 32-mm head was applied. During closure, we reattached the piriformis and conjoint tendon through 2 drill holes to the posterior superior greater trochanter. The hemostasis was checked and achieved utilizing electrocautery. We irrigated several times during closure with saline and we swabbed the soft tissues with clean lap sponges to avoid leaving debris. After reattaching the 2 muscles and the iliotibial band was reapproximated with interrupted #1 Vicryl in pfssyk-ej-nzioa fashion, more proximally on the fascia we used 0 Vicryl, the deep and superficial subcu were closed with 0 Vicryl and then 2- 0 Vicryl and then vale on the skin. The skin was washed and dried and covered with Betadine-soaked release, followed by sterile gauze, ABD pad, and then paper tape. The patient was carefully returned to the supine position and then to the hospital bed and into the recovery room in stable and satisfactory condition, having tolerated the procedure very well. [id number]/CPS #: [id number] MTDD
[2019-02-25] MEDS: traMADol TAB* 50 MG PO SCH ×4 (00:45→18:11)
[2019-02-25] MEDS: Acetaminophen TAB* 325 MG PO SCH ×3 (00:45→16:31)
[2019-02-25] MEDS: Lactated Ringers 1000 ML Bag* 1,000 ML IV SCH (03:20)
[2019-02-25] MEDS: ceFAZolin 1 GM ADVAN(*) 1 GM in NS 0.9% 50 ML* 50 ML IVPB SCH ×2 (04:47→12:28)
[2019-02-25 05:40] LABS: Hematocrit 32 % (33-41); Hemoglobin 10.9 g/dL (12.0-16.0); Mean Platelet Volume 8.5 fL (7.4-10.4); Platelet Count 160 10^3/uL (150-450)
[2019-02-25 05:57] LABS: BUN/Creatinine Ratio 28.7 (8-20); Calcium 8.1 mg/dL (8.6-10.3); EGFR African American 75.2 (>60); EGFR Non-African American 62.2 (>60); Potassium 3.6 mmol/L (3.5-5.0)
[2019-02-25] MEDS: Levothyroxine TAB* 100 MCG TAB PO SCH (06:06)
[2019-02-25] MEDS ORDERED: Morphine INJ* 2 MG/ML 1 ML SYRINGE (TWO MG - NEW SYRINGE VERSION) IV PRN (08:05)
[2019-02-25] MEDS: Metoprolol Succinate XL TAB* 25 MG PO SCH (08:29)
[2019-02-25] MEDS: Gemfibrozil TAB* 600 MG PO SCH ×2 (08:29→20:41)
[2019-02-25] MEDS: Docusate CAP* 100 MG PO SCH ×2 (08:29→20:41)
[2019-02-25] MEDS: Atorvastatin* 20 MG TAB PO SCH (08:29)
[2019-02-25] MEDS: Terazosin CAP* 5 MG PO SCH (08:29)
[2019-02-25] MEDS: Aspirin TAB* 325 MG PO SCH (08:29)
[2019-02-25] MEDS: NIFEdipine ER TAB* 60 MG PO SCH (08:29)
[2019-02-25] MEDS ORDERED: Metoprolol Succinate XL TAB* 100 MG PO SCH (09:00)
--- NOTE | 2019-02-25 09:47 | PN ---
Progress Note - Progress Note Date of Service: 02/25/19 SOAP: Subjective: []Patient seen and examined at bedside. She feels well and desires DC today, her son in the room would feel more comfortable if she go to PMRU or at least to stay another day as she lives alone. Denies CP, SOB, dizziness, nausea. Last night patient had an episode of disorientation being unsure where she was which resolved without intervention once she was awake and oriented to surroundings. Objective: []General: Well appearing, NAD, a&ox3 RLE: RIght hip dressing CDI, thigh is soft, DF/PF intact, sensation intact to light touch distally, DP2+ Calves supple and nontender without erythema, edema or palpable cords Assessment: []POD 1 sp Right total hip replacement 02/24 Dr Otero Plan: []WBAT PT/OT posterior hip precautions PMRU referral in. At home patient would be alone, her daughter and neighbor would be available as needed though not staying in her home with her. Home is all one level Vital Signs Temp 98.5 F 02/25/19 07:26 Pulse 66 02/25/19 07:26 Resp 18 02/25/19 08:28 BP 138/53 02/25/19 07:26 Pulse Ox 96 02/25/19 07:26 Intake & Output 02/24/19 02/25/19 02/25/19 18:59 06:59 18:59 Intake Total 2300 2151 360 Output Total 400 1475 500 Balance 1900 676 -140 Weight 147 lb Intake: IV Fluids 2300 1011 ABX - CEFAZOLIN 50 LR 2200 961 NS 100ML, Cefazolin 2G 100 Oral 1140 360 Output: Urine 500 Aragon 400 1475 Other: Estimated Blood Loss 400 Comment Laboratory Last Values Hgb 10.9 g/dL (12.0-16.0) L 02/25/19 04:57 Hct 32 % (33-41) L 02/25/19 04:57 Plt Count 160 10^3/uL (150-450) 02/25/19 04:57 MPV 8.5 fL (7.4-10.4) 02/25/19 04:57 Sodium 139 mmol/L (135-145) 02/25/19 04:57 Potassium 3.6 mmol/L (3.5-5.0) 02/25/19 04:57 Chloride 107 mmol/L (101-111) 02/25/19 04:57 Carbon Dioxide 26 mmol/L (22-32) 02/25/19 04:57 Anion Gap 6 mmol/L (2-11) 02/25/19 04:57 BUN 25 mg/dL (6-24) H 02/25/19 04:57 Creatinine 0.87 mg/dL (0.51-0.95) 02/25/19 04:57 Est GFR ( Amer) 75.2 (>60) 02/25/19 04:57 Est GFR (Non-Af Amer) 62.2 (>60) 02/25/19 04:57 BUN/Creatinine Ratio 28.7 (8-20) H 02/25/19 04:57 Glucose 118 mg/dL (70-100) H 02/25/19 04:57 Calcium 8.1 mg/dL (8.6-10.3) L 02/25/19 04:57
--- NOTE | 2019-02-25 13:23 | PN ---
Progress Note - Progress Note Date of Service: 02/25/19 Note: POD #1. Patient has done well overnight, however, little sleep. No marked pain right hip region. Nursing report overnight is very good. Patient walked with a walker in her room last PM. Hct 32%. Intake and Output are 4800 and 1800 respectively. X-ray right hip after surgery satisfactory. Right foot pulse ins 2 plus. Patient awake, alert, cooperative, and not distressed. Patient seen at 0700 this AM. Impression: stable and acute blood loss anemia. Plans: Up with walker , drinking, and using incentive spirometer.
--- NOTE | 2019-02-25 15:24 | PN ---
Hospitalist Progress Note Date of Service: 02/25/19 Chart reviewed: Patient has been normotensive with SBP 100-130s. Recommend continuing metoprolol , nifedipine, and losartan at current dosing. No concerns related to CAD. Other home medications can be continued. Thank you for this consultation. We will continue to follow distantly.
[2019-02-25] MEDS ORDERED: Losartan TAB* 25 MG PO SCH (18:00)
[2019-02-26] MEDS: Acetaminophen TAB* 325 MG PO SCH ×3 (00:15→15:12)
[2019-02-26] MEDS: traMADol TAB* 50 MG PO SCH ×4 (00:18→15:12)
[2019-02-26] MEDS: Levothyroxine TAB* 100 MCG TAB PO SCH (05:13)
[2019-02-26 06:26] LABS: Hematocrit 29 % (33-41); Hemoglobin 9.9 g/dL (12.0-16.0); Mean Platelet Volume 8.3 fL (7.4-10.4); Platelet Count 157 10^3/uL (150-450)
[2019-02-26] MEDS: NIFEdipine ER TAB* 60 MG PO SCH (09:00)
[2019-02-26] MEDS: Aspirin TAB* 325 MG PO SCH (09:00)
[2019-02-26] MEDS: Metoprolol Succinate XL TAB* 25 MG PO SCH (09:00)
[2019-02-26] MEDS: Gemfibrozil TAB* 600 MG PO SCH (09:00)
[2019-02-26] MEDS: Docusate CAP* 100 MG PO SCH (09:00)
[2019-02-26] MEDS: Atorvastatin* 20 MG TAB PO SCH (09:00)
[2019-02-26] MEDS: Terazosin CAP* 5 MG PO SCH (09:00)
--- NOTE | 2019-02-26 11:13 | PN ---
Progress Note - Progress Note Date of Service: 02/26/19 SOAP: Subjective: []Patient seen at bedside. Her pain is well controlled and she desires DC, agreeable to home or to PMRU. Denies CP, SOB, dizziness, nausea Objective: [] General: Well appearing, NAD RLE: RIght hip dressing changed, incision is CDI, thigh is soft, DF/PF intact, sensation intact to light touch distally, DP2+ Calves supple and nontender without erythema, edema or palpable cords Assessment: []POD 2 sp Right total hip replacement 02/24 Dr Otero Plan: []WBAT PT/OT posterior hip precautions PMRU referral in awaiting review Vital Signs Temp 98.7 F 02/26/19 07:17 Pulse 64 02/26/19 08:58 Resp 18 02/26/19 08:40 BP 132/52 02/26/19 08:58 Pulse Ox 94 02/26/19 08:00 Intake & Output 02/25/19 02/26/19 02/26/19 18:59 06:59 18:59 Intake Total 1590 755 350 Output Total 750 900 450 Balance 840 -145 -100 Intake: IV Fluids 1000 ABX - CEFAZOLIN 110 LR 890 Oral 590 755 350 Output: Urine 750 900 450 Other: Estimated Void Medium # Bowel Movements 1 Estimated Stool Amount Large # Voids 1 Laboratory Last Values Hgb 9.9 g/dL (12.0-16.0) L 02/26/19 05:47 Hct 29 % (33-41) L 02/26/19 05:47 Plt Count 157 10^3/uL (150-450) 02/26/19 05:47 MPV 8.3 fL (7.4-10.4) 02/26/19 05:47 Sodium 139 mmol/L (135-145) 02/25/19 04:57 Potassium 3.6 mmol/L (3.5-5.0) 02/25/19 04:57 Chloride 107 mmol/L (101-111) 02/25/19 04:57 Carbon Dioxide 26 mmol/L (22-32) 02/25/19 04:57 Anion Gap 6 mmol/L (2-11) 02/25/19 04:57 BUN 25 mg/dL (6-24) H 02/25/19 04:57 Creatinine 0.87 mg/dL (0.51-0.95) 02/25/19 04:57 Est GFR ( Amer) 75.2 (>60) 02/25/19 04:57 Est GFR (Non-Af Amer) 62.2 (>60) 02/25/19 04:57 BUN/Creatinine Ratio 28.7 (8-20) H 02/25/19 04:57 Glucose 118 mg/dL (70-100) H 02/25/19 04:57 Calcium 8.1 mg/dL (8.6-10.3) L 02/25/19 04:57
[2019-02-26 12:31] LABS: Urine Appearance Clear; Urine Bacteria Absent (Absent); Urine Bilirubin Negative (Negative); Urine Blood 1+ (Negative); Urine Color Yellow; Urine Glucose Negative (Negative); Urine Ketones Negative (Negative); Urine Nitrite Negative (Negative); Urine Protein Negative (Negative); Urine Red Blood Cell 1+(3-5/hpf) (Absent); Urine Specific Gravity 1.025 (1.010-1.030); Urine Squamous Epithelial Cell Present (Absent); Urine Urobilinogen Negative (Negative); Urine White Blood Cell 2+(11-20/hpf) (Absent)
--- NOTE | 2019-02-26 14:40 | DS ---
Orthopedic Discharge Summary - Discharge Summary Date of Admission:02/24/19 Date of Discharge: 02/26/19 Date of Surgery: [02/24/19 ] Attending Orthopedic Provider: Dr Garcia Pre-operative Diagnosis: right hip osteoarthritis Operative Procedure: right total hip arthroplasty Condition of Patient: stable History: CLAUDIA MCGRAW is a 83 year old F with years of increasingly severe right hip pain. Patient has failed conservative management and has elected to undergo a left total hip replacement Hospital Course: CLAUDIA was admitted to [facility] on 02/24/19. Patient underwent a right total hip arthroplasty without complication followed by a brief recovery in PACU and transfer to the Short Stay Surgical Unit in stable condition. Our hospitalist service, physical therapy and occupational therapy also participated in this patients care. Post-op day 1: patient was alert and in no acute distress. Dressing was clean, dry and intact. Operative extremity dorsiflexion and plantarflexion intact, sensation intact to light touch distally, DP2+. Post-op day two: dressing was changed, incision was clean , dry and intact. Patient was deemed to be medically and orthopedically stable for discharge home. Physical therapy goals were met. She lives alone but has family readily available and a neighbor across the street who she confirms will be available anytime needed. Home Medications Medication Instructions Recorded Confirmed Type Atorvastatin* [Lipitor 20 MG*] 20 mg PO QAM 05/08/13 02/24/19 History Gemfibrozil TAB* [Lopid TAB*] 600 mg PO BID 05/08/13 02/24/19 History Levothyroxine TAB* [Synthroid 125 100 mcg PO QAM 05/08/13 02/24/19 History MCG TAB*] Metoprolol Succinate XL TAB* 75 mg PO DAILY 05/08/13 02/24/19 History [Toprol XL TAB*] NIFEdipine ER TAB* [Procardia Xl 60 mg PO QAM 05/08/13 02/24/19 History TAB*] Nitroglycerin TAB 0.4 MG* 0.4 mg SL SEE INSTRUCTIONS 05/08/13 02/24/19 History Terazosin CAP* [Hytrin CAP*] 5 mg PO QAM 05/08/13 02/24/19 History Losartan TAB* [Cozaar TAB*] 50 mg PO QPM 02/11/19 02/24/19 History Acetaminophen TAB* [Tylenol TAB*] 975 mg PO Q8H PRN tab 02/26/19 Rx Aspirin TAB* [Aspirin 325 MG TAB*] 325 mg PO DAILY #30 tab 02/26/19 Rx Docusate CAP* [Colace Cap*] 100 mg PO BID PRN #90 cap 02/26/19 Rx traMADol TAB* [Ultram*] 50 mg PO Q6H PRN #40 tab MDD 8 02/26/19 Rx DC condition: Stable Discharge Instructions following Orthopedic Surgery: Activity: * Weight Bearing as tolerated * Continue physical therapy and occupational therapy exercises as shown * Start physical therapy, home PT Hip replacements: Continue Hip Precautions- do not cross legs or bend greater than 90 degrees/squat Wound care: * OK to shower on post-op day 3, no bathing, swimming, or submerging wound. * Use gentle soap, pat dry. Cover with gauze, CHARLY wrap or tape. * Visiting home nurse to do wound checks. Call Orthopedic office for: * Increased drainage * Redness * Increased pain * Fever Go to ER with shortness of breath or chest pain. Diet: * Regular diet * Increase fluids and fiber to prevent constipation. * Continue to use stool softeners, call office if no bowel motion within 48 hours. Medications See Home Medication List in your packet for medications that you should take after discharge. DVT Prophylaxis Aspirin Dosinmg once a day for 30 days Pain Control: tramadol 50 mg 1-2 tabs by mouth every 6 hours as needed for pain. Maximum of 8 tabs per day. You may also use tyenol for pain control, maximum of 4000 mg per day from all sources Antibiotics are required prior to any dental work. FOLLOW UP: Follow up with [Shanna] in 4 weeks, call for appointment Please call our office with any questions or concerns ([phone])
[2019-02-26 15:44] VITALS: BP 107/46
== END 2019-02-26 15:48 | disposition home health service (06) | DRG 470 ==
LOC: AA 09:15 → SSU 17:11
PROVIDERS: ADMIT Orthopaedic Surgery; ATTEND Orthopaedic Surgery
PROC: 0SR902A Replacement of Right Hip Joint with Metal on Polyethylene Synthetic Substitute, Uncemented, Open Approach (ICD-10-PCS; principal; 2019-02-24 11:00)
DX: M16.11 Unilateral primary osteoarthritis, right hip (principal); E78.5 Hyperlipidemia, unspecified; E78.00 Pure hypercholesterolemia, unspecified; I25.10 Atherosclerotic heart disease of native coronary artery without angina pectoris; I10 Essential (primary) hypertension; K21.9 Gastro-esophageal reflux disease without esophagitis; M25.751 Osteophyte, right hip; I35.1 Nonrheumatic aortic (valve) insufficiency; E03.9 Hypothyroidism, unspecified; Z90.710 Acquired absence of both cervix and uterus; Z90.49 Acquired absence of other specified parts of digestive tract; I25.2 Old myocardial infarction; Z95.5 Presence of coronary angioplasty implant and graft; Z82.49 Family history of ischemic heart disease and other diseases of the circulatory system; Z87.891 Personal history of nicotine dependence; Z80.3 Family history of malignant neoplasm of breast; Z80.1 Family history of malignant neoplasm of trachea, bronchus and lung; Z87.440 Personal history of urinary (tract) infections
CPT/HCPCS: 36415; 72170; 80048; 81003; 81015; 85014; 85018; 85049; 87086; A9270-GY; C1713; C1776; G8978-GP-CK; G8979-GP-CI; G8987-GO-CI; G8987-GO-CJ; G8988-GO-CI; G8989-GO-CI; J0690; J1100; J1170; J1885; J2405; J3010

== ENCOUNTER 2024-10-17 21:19 | Inpatient (IN) ==
[2024-10-17 21:51] LABS: ABS Basophils 0.1 10^3/uL (0.0-0.1); ABS Eosinophils 0.1 10^3/uL (0.0-0.5); ABS Lymphocytes 0.7 10^3/uL (1.0-4.8); ABS Monocytes 0.7 10^3/uL (0.0-0.9); ABS Neutrophils 8.5 10^3/uL (1.5-7.6); Eosinophil % 0.6 %; Hematocrit 31.8 % (35-45); Lymphocyte % 7.4 %; Mean Corpuscular Hemoglobin 32.5 pg (27-33); Mean Corpuscular Hgb Conc 34.5 g/dL (31-36); Mean Corpuscular Volume 94.3 fL (80-97); Mean Platelet Volume 7.7 fL (7.5-11.2); Platelet Count 316 10^3/uL (150-450); Red Blood Count 3.37 10^6/uL (3.63-4.92); Red Cell Distribution Width 14.6 % (12-17); White Blood Count 10.1 10^3/uL (3.8-11.8)
[2024-10-17 21:59] LABS: Activated Partial Thrombo Time 33.3 seconds (26.0-38.0); INR 1.35 (0.85-1.14)
[2024-10-17 22:36] LABS: Albumin/Globulin Ratio 1.4 (1-3); Calcium 8.3 mg/dL (8.6-10.3); Creatinine, Serum 0.96 mg/dL (0.51-0.95); Globulin 2.1 g/dL (2-4); Potassium 3.7 mmol/L (3.5-5.0); Total Bilirubin 0.3 mg/dL (0.2-1.0); Total Protein 5.1 g/dL (6.4-8.9); eGFR CKD-EPI 56.6 (>60)
[2024-10-18] MEDS: HYDROcodone/ACETAMIN 5/325 mg TAB PO PRN (01:58)
[2024-10-18] MEDS: Iodixanol 320 (CONTRAST) 100 ML SDV IV ONE (03:34)
[2024-10-18 05:49] LABS: ABS Eosinophils 0.1 10^3/uL (0.0-0.5); ABS Lymphocytes 0.8 10^3/uL (1.0-4.8); ABS Monocytes 0.5 10^3/uL (0.0-0.9); ABS Neutrophils 6.5 10^3/uL (1.5-7.6); ABS Nucleated RBC 0.01 10^3/ul; Eosinophil % 1.7 %; Hematocrit 31.9 % (35-45); Hemoglobin 10.9 g/dL (11.5-14.3); Lymphocyte % 10.1 %; Mean Corpuscular Hemoglobin 32.4 pg (27-33); Mean Corpuscular Hgb Conc 34.1 g/dL (31-36); Mean Corpuscular Volume 95.1 fL (80-97); Mean Platelet Volume 7.4 fL (7.5-11.2); Nucleated Red Blood Cells % 0.1 %/100WBC (0.0-0.8); Platelet Count 276 10^3/uL (150-450); Red Blood Count 3.35 10^6/uL (3.63-4.92); Red Cell Distribution Width 14.7 % (12-17)
[2024-10-18 06:06] LABS: Calcium 8.4 mg/dL (8.6-10.3); Creatinine, Serum 0.86 mg/dL (0.51-0.95); Potassium 3.9 mmol/L (3.5-5.0); eGFR CKD-EPI 64.5 (>60)
[2024-10-18] MEDS: PEG 3000 GI LAVAGE 1 GALLON PO ONE (11:58)
[2024-10-18 12:02] LABS: Urine Appearance Turbid; Urine Bilirubin Negative (Negative); Urine Blood Trace (Negative); Urine Color Yellow; Urine Glucose Negative (Negative); Urine Ketones Negative (Negative); Urine Nitrite Negative (Negative); Urine Protein Trace (Negative); Urine Specific Gravity 1.027 (1.002-1.030); Urine Urobilinogen Negative (Negative)
[2024-10-18 12:37] LABS: Urine Bacteria 2+ /HPF (Absent); Urine Red Blood Cell Absent /HPF (0-Trace); Urine White Blood Cell 3+(>20/hpf) /HPF (0-Trace)
[2024-10-19 09:08] LABS: ABS Basophils 0.1 10^3/uL (0.0-0.1); ABS Eosinophils 0.1 10^3/uL (0.0-0.5); ABS Lymphocytes 0.7 10^3/uL (1.0-4.8); ABS Monocytes 0.5 10^3/uL (0.0-0.9); ABS Neutrophils 5.5 10^3/uL (1.5-7.6); Eosinophil % 1.5 %; Hematocrit 31.5 % (35-45); Hemoglobin 10.8 g/dL (11.5-14.3); Lymphocyte % 10.4 %; Mean Corpuscular Hemoglobin 32.6 pg (27-33); Mean Corpuscular Hgb Conc 34.2 g/dL (31-36); Mean Corpuscular Volume 95.4 fL (80-97); Mean Platelet Volume 7.1 fL (7.5-11.2); Platelet Count 315 10^3/uL (150-450); Red Cell Distribution Width 14.2 % (12-17); White Blood Count 6.9 10^3/uL (3.8-11.8)
[2024-10-19 09:35] LABS: Creatinine, Serum 0.76 mg/dL (0.51-0.95); Magnesium 2.2 mg/dL (1.9-2.7); Potassium 3.8 mmol/L (3.5-5.0); eGFR CKD-EPI 74.9 (>60)
[2024-10-20 09:04] LABS: Hematocrit 31.4 % (35-45); Hemoglobin 10.8 g/dL (11.5-14.3)
[2024-10-20] MEDS: Polyethylene Glycol 3350 17 GM PACKET PO SCH (09:13)
[2024-10-20 09:27] VITALS: BP 123/67
== END 2024-10-20 12:30 | DRG 393 ==
LOC: EDHOLD 21:19 → ED 21:19 → MED 23:58
PROVIDERS: ADMIT Internal Medicine; ATTEND Hospitalist